=== PATIENT | female | born 1970 | race Caucasian/White ===

== ENCOUNTER 2021-12-22 00:13 | Day surgery (SDC) | payer MEDICAID, SELFPAY ==
[2021-12-06 14:12] VITALS: BMI 23.0
--- NOTE | 2021-12-20 20:25 | PM.HPGS ---
History of Present Illness History of Present Illness Consent: Risks, benefits, and alternatives have been discussed and questions answered. Patient agrees to proceed with procedure. Chief complaint: neoplasm screening Narrative: Nidia Oliver is a 51 year old female refeerred for colon cancer screening Review of Systems Review of Systems: All systems reviewed & are unremarkable except as noted in HPI and below PMFSH Social History Social History Smoking packs per day: 1 Smoking cigarettes per day: 20.0 Years smoked: 30 Smoking pack-years: 30.00 Smoking status: Current every day smoker Tobacco type: cigarettes Alcohol intake: current Drinks per week: 3 Living arrangements: alone Spiritual care concerns: No Meds Home Medications and Allergies Home Medications Medication Instructions Recorded Confirmed Type No Home Medications 12/06/21 12/06/21 History Allergies Allergy/AdvReac Type Severity Reaction Status Date / Time Penicillins Allergy Rash Verified 12/22/21 07:13 Exam Resp: Auscultation: clear to auscultation bilaterally Cardio: Rate: regular rate Rhythm: regular rhythm GI: GI Palp: Yes Soft to palpation and No Tenderness to palpation present (GI) Assessment and Plan Assessment and plan (1) Colon cancer screening: Code(s): Z12.11 - Encounter for screening for malignant neoplasm of colon Status: Acute Assessment and Plan: Colonoscopy with possible biopsy or polypectomy or cautery or injection of substances.
[2021-12-22 07:15] VITALS: BP 159/86; PULSE 121; RESP 20; TEMP 36.4; O2SAT 98; BMI 19.1
[2021-12-22] MEDS: LACTATED RINGERS 1,000 ML 150 ML IV CONT (07:22)
--- NOTE | 2021-12-22 07:23 | SUR.PREOP ---
pt appears anxious, vitals as charted. pt denies symptoms, NAD. MD Francois notified of pt HR. no new orders. pt denies complaints
[2021-12-22 08:13] VITALS: PULSE 98
--- NOTE | 2021-12-22 08:28 | WPDANESEPPF ---
Anes - Initial Pre Proc Eval Procedure: Operation Date: 12/22/21 08:30 Proposed Procedures p Screening Colonoscopy - Naveen Mclaughlin MD Date/Time: 12/22/21 08:28 Surgeon: Naveen Mclaughlin MD Pre Op Diagnosis: neoplasm screening Patient Data Age: 51 Gender: F Height: 1.6 m Weight: 49 kg Last Vital Signs Temp 97.6 F 12/22/21 07:15 Pulse 98 12/22/21 08:13 Resp 20 12/22/21 07:15 BP 159/86 H 12/22/21 07:15 Pulse Ox 98 12/22/21 07:15 Allergies Allergy/AdvReac Type Severity Reaction Status Date / Time Penicillins Allergy Rash Verified 12/22/21 07:13 Home Medications Medication Instructions Recorded Confirmed Type No Home Medications 12/06/21 12/06/21 History Patient hx anesthesia problems: none Family hx anesthesia problems: none Results Review: All pre-operative results and documents have been reviewed as part of the pre-operative evaluation. [facility] Social History Social History Smoking packs per day: 1 Smoking cigarettes per day: 20.0 Years smoked: 30 Smoking pack-years: 30.00 Smoking status: Current every day smoker Tobacco type: cigarettes Alcohol intake: current Drinks per week: 3 Living arrangements: alone Spiritual care concerns: No Anes - Eval Final PreProcedure Day of Procedure 12/22/21 08:28 Patient weight: normal Heart: regular rate and rhythm Lungs: clear to auscultation Airway: Mallampati scale class II Neurological: alert and oriented Last oral intake: >/= 8 hours ASA classification: II Emergent: no Anesthetic plan: proceed Anesthesia type and monitoring: general GIVS and standard monitoring Results Review: All pre-operative results and documents have been reviewed as part of the pre-operative evaluation. Informed Consent: The patient's anesthetic plan and its attendant risks and benefits were discussed with the patient/family/POA. Questions were solicited and answers provided to the satisfaction of the patient/family/POA.
[2021-12-22 09:00] VITALS: BP 87/57; PULSE 90; RESP 19; O2SAT 90
[2021-12-22 09:10] VITALS: BP 94/62; PULSE 97; RESP 19; O2SAT 90
[2021-12-22 09:20] VITALS: BP 122/83; PULSE 95; RESP 25; O2SAT 100
== END 2021-12-22 09:36 | disposition home or self-care (01) ==
PROVIDERS: PCP Internal Medicine; Visit Provider Internal Medicine Gastroenterology
PROC: 0DJD8ZZ Inspection of Lower Intestinal Tract, Via Natural or Artificial Opening Endoscopic (ICD-10-PCS; CPT 45378; principal; 2021-12-22 08:30)
DX: Z12.11 Encounter for screening for malignant neoplasm of colon (principal); D12.2 Benign neoplasm of ascending colon; D12.4 Benign neoplasm of descending colon; D12.5 Benign neoplasm of sigmoid colon; R19.4 Change in bowel habit; F17.210 Nicotine dependence, cigarettes, uncomplicated
CPT/HCPCS: 45385; 45381; 45380; 88305; J2001; J2704; J7120

== ENCOUNTER 2022-10-06 09:21 | Outpatient (CLI) | payer MEDICAID, SELFPAY ==
[2022-10-06 10:07] LABS: Hematocrit 46.2 % (37.0-47.0); Hemoglobin 15.5 g/dL (12.0-15.0); Mean Corpuscular HGB Conc 33.5 g/dl (32-36); Mean Corpuscular Hemoglobin 29.2 pg (26-34); Mean Platelet Volume 10.1 fl (7.4-10.4); Platelet Count Result 280 k/mm3 (150-375); Red Blood Count 5.31 M/mm3 (4.2-5.4); Red Cell Distribution Width 12.9 % (11.5-14.5); White Blood Count 8.3 K/mm3 (4.5-10.0)
[2022-10-06 10:19] LABS: Alanine Aminotransferase 43 U/L (6-35); Albumin Level 4.2 g/dL (3.5-5.1); Alkaline Phosphatase 100 U/L (38-126); Anion Gap 9 mmol/L (8-16); Aspartate Amino Transferase 49 U/L (14-36); Bilirubin,Total 0.8 mg/dL (0.2-1.3); Blood Urea Nitrogen 10 mg/dL (7-17); CRP 6.1 mg/dL (<1.0); Calcium 9.4 mg/dL (8.4-10.2); Carbon Dioxide 29 mmol/L (22-30); Chloride 92 mmol/L (98-107); Estimated Glomerular Filt Rate > 60; Glucose 99 mg/dL (65-110); Potassium 3.6 mmol/L (3.4-5.0); Sodium 130 mmol/L (137-145)
[2022-10-06 10:49] LABS: Erythrocyte Sedimentation Rate 9 mm/hr (0-20)
== END 2022-10-06 09:22 | disposition home or self-care (01) ==
LOC: ANHLAB 09:23
PROVIDERS: PCP Internal Medicine; Visit Provider Nurse Practitioner
DX: R19.7 Diarrhea, unspecified (principal); K50.90 Crohn's disease, unspecified, without complications; R10.31 Right lower quadrant pain; R10.32 Left lower quadrant pain; R63.4 Abnormal weight loss; Z86.010 Personal history of colon polyps
CPT/HCPCS: 36415; 80053; 84443; 85027; 85652; 86140

== ENCOUNTER 2022-10-07 12:39 | Outpatient (CLI) | payer MEDICAID, SELFPAY ==
[2022-10-14 21:12] LABS: Calprotectin, Stool 38 mcg/g
== END 2022-10-07 12:40 | disposition home or self-care (01) ==
LOC: ANHLAB 12:40
PROVIDERS: PCP Internal Medicine; Visit Provider Nurse Practitioner
DX: R19.7 Diarrhea, unspecified (principal); K50.90 Crohn's disease, unspecified, without complications; R63.4 Abnormal weight loss; R10.31 Right lower quadrant pain; R10.32 Left lower quadrant pain; Z86.010 Personal history of colon polyps
CPT/HCPCS: 83993; 87045; 87269; 87427

== ENCOUNTER 2024-06-02 12:04 | Observation (INO) | payer MEDICAID, SELFPAY ==
[2024-06-02] VITALS (17 sets, daily range): BP systolic 90–108; BP diastolic 61–83; PULSE 98–135; RESP 16–26; TEMP 36.4–36.8; O2SAT 95–98
--- NOTE | ~2024-06-02 | XR_ITS ---
EXAMINATION: [id number] DATE: 06/03/2024 17:50 INDICATION: Status post left thoracentesis TECHNIQUE: PA and lateral views of the chest were obtained. COMPARISON: Chest CT dated 06/02/2024 FINDINGS: Decrease in size of a now small left pleural effusion. There are persistent airspace opacities in the left lower lung zone. Right lung remains clear with no pleural effusion. No pulmonary edema or pneum othorax. There is hyperexpansion of the right lung with increased lucency and architectural distortio n in the bilateral upper lung zones consistent with emphysema. Heart size is normal. IMPRESSION: 1. Decreased small right pleural effusion with persistent opacities in the right lower lung zone whic h based upon prior CT likely represent combination of malignancy, pneumonia and atelectasis. 2. Emphysema. Reviewed, dictated and finalized at location A. IMPRESSION: 1. Decreased small right pleural effusion with persistent opacities in the righ t lower lung zone which based upon prior CT likely represent combination of mal ignancy, pneumonia and atelectasis. 2. Emphysema.
--- NOTE | ~2024-06-02 | US_ITS ---
EXAMINATION: US thoracentesis DATE: 06/03/2024 18:13 INDICATION: pleural effusion TECHNIQUE: The procedure and its risks and benefits were discussed with the patient. Potential risks discussed included bleeding, infection, and pneumothorax. The patient understood the risks and agreed to proceed. The skin was prepped and draped in sterile fashion. 1% lidocaine was used for local anes thesia. Under ultrasound guidance, a 5 Fr catheter with trochar was advanced into the left pleural ef fusion. Fluid was aspirated. The catheter was removed, and a dressing was applied. There were no imme diate complications. FINDINGS: Ultrasound images demonstrate a moderate-sized left pleural effusion and the catheter within the flui d. IMPRESSION: 1. Successful ultrasound-guided thoracentesis yielding 1000 mL of dark aston-colored fluid. Reviewed, dictated and finalized at location A. IMPRESSION: 1. Successful ultrasound-guided thoracentesis yielding 1000 mL of dark aston-c olored fluid.
--- NOTE | ~2024-06-02 | CT_ITS ---
EXAMINATION: CTA chest PE protocol DATE: 06/02/2024 16:40 INDICATION: Cough. TECHNIQUE: Computed tomography angiography (CTA) of the chest was performed with 100 mL Omnipaque-350 intravenous contrast timed to evaluate the pulmonary arteries. Coronal maximum intensity projection 3D-reconstructions were created by the technologist. Automated exposure control and iterative reconst ruction technique were employed. The dose-length product was 139.86 mGy-cm. COMPARISON: PET/CT 06/04/2013 FINDINGS: There is severe emphysema. There is a moderate-sized loculated effusion. There is a cavitar y mass in left perihilar region with invasion of left main pulmonary artery. There are airspace opaci ties in left lower lobe and lingula. A calcified right lung nodule is consistent with old granulomato us disease. The heart size is normal. There are coronary artery calcifications. No pericardial effusi on. There is no pulmonary embolus. There is mild thoracic spondylosis. IMPRESSION: 1. Cavitary mass in left perihilar region with invasion of left main pulmonary artery, consistent wit h primary bronchogenic carcinoma. 2. Airspace opacities in left lower lobe and lingula, consistent with pneumonia and atelectasis versu s treatment change. 3. Moderate-sized left pleural effusion. 4. Severe emphysema. Reviewed, dictated and finalized at location E. IMPRESSION: 1. Cavitary mass in left perihilar region with invasion of left main pulmonary artery, consistent with primary bronchogenic carcinoma. 2. Airspace opacities in left lower lobe and lingula, consistent with pneumonia and atelectasis versus treatment change. 3. Moderate-sized left pleural effusion. 4. Severe emphysema.
--- NOTE | 2024-06-02 14:58 | ED.URI ---
HPI - URI/Sore Throat General Chief Complaint: Upper Respiratory Infection Stated Complaint: cough x 3 days Time Seen by Provider: 06/02/24 14:40 Source: patient Mode of arrival: ambulatory Limitations: no limitations History of Present Illness HPI Narrative: Patient presents with cough 3 days duration. She has a history of lung cancer as well COPD and is concerned about pneumonia as she has had a history of recurrent pneumonia but denies any that were drug-resistant. Patient states she has not been under treatment for the past 3 months for her cancer and that she is in a surveillance period. At baseline she smokes 1 pack per day; no prior attempts to stop although she does identify reasons to stop as well as why she continues. She does state that recently she has not had any desire to smoke over the past few days. No sore throat, myagias but she has had rhinorrhea. Lives with her boyfriend who is not sick. Has been coughing up yelow/cear sputum, no hemoptysis. She denies any lower extremity edema but she does have chest pain particiularly on the left side particularly when she coughs. 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 Related Data Home Medications Medication Instructions Recorded Confirmed albuterol sulfate 90 mcg/actuation 2 puff inhalation Q4H PRN 06/02/24 06/02/24 aerosol inhaler Shortness Of Breath Or Wheezing budesonide-formoterol HFA 160 2 puff inhalation Q12H 06/02/24 06/02/24 mcg-4.5 mcg/actuation aerosol inhaler dexamethasone 4 mg tablet 4 mg PO DAILY 06/02/24 06/02/24 ergocalciferol (vitamin D2) 1,250 50,000 unit PO WEEKLY 06/02/24 06/02/24 mcg (50,000 unit) capsule sodium chloride 1,000 mg soluble 1,000 mg PO BID 06/02/24 06/02/24 tablet Allergies Allergy/AdvReac Type Severity Reaction Status Date / Time Penicillins Allergy Rash Verified 06/02/24 14:44 [facility] Past Medical History Medical History Bilateral lower abdominal cramping Crohn's ileitis Emphysema of lung Hx of adenomatous colonic polyps Hx of cancer of uterus Lung cancer Family History Family History Father Heart disease Social History Social History (Updated 06/04/24 @ 07:08 by Emi Ferreira MD) Smoking packs per day: 1 Smoking cigarettes per day: 20.0 Years smoked: 40 Smoking pack-years: 40.00 Smoking status: Heavy tobacco smoker Tobacco type: cigarettes Second hand tobacco smoke exposure: Yes Alcohol intake: never Drinks per week: 3 Substance use: never Substance use type: does not use Do You Feel Safe in your Home?: Yes Lack of Transportation: No Lack of Food: Never True Current Housing: I Have Housing Concerned About Future Housing: No Difficulty Paying Gas/Electric Bills: No Difficulty Paying for Meds: No Currently Unemployed: No Education: High School Diploma/GED Difficulty w/ Childcare or Family Care: No Living arrangements: other Additional living arrangements comments: Lives with boyfriend Spiritual care concerns: No Exam Narrative: GENERAL: Well-appearing, well-nourished, and in no acute distress. HEAD: Normocephalic, atraumatic. EYES: Non injected, non icteric ENT: Nares clear, no rhinorrhea or epistaxis. NECK: Supple. CHEST: Speaking in full sentences. No respiratory distress. Poor breath sounds on the left. No wheezes. HEART: Regular rate and rhythm. . ABDOMEN: Soft, nondistended. EXTREMITIES: Normal range of motion. No edema. SKIN: Warm, dry, no rash. NEURO: No focal deficits. Alert and oriented x3. PSYCH: Normal mood and affect. Course Vital Signs Vital signs: Vital Signs Temperature 97.6 F 06/02/24 12:05 Pulse Rate 135 H 06/02/24 12:05 Respiratory Rate 16 06/02/24 12:05 Blood Pressure 98/61 L 06/02/24 12:05 Pulse Oximetry 96 06/02/24 12:05 Tem
[2024-06-02] MEDS: SODIUM CHLORIDE 0.9% IV 500 ML 999 ML IV CONT ×2 (15:44→16:58)
[2024-06-02 15:50] LABS: Hematocrit 35.9 % (37.0-47.0); Mean Corpuscular HGB Conc 33.4 g/dl (32-36); Mean Corpuscular Volume 80.7 fl (80-100); Mean Platelet Volume 8.9 fl (7.4-10.4); Platelet Count Result 268 k/mm3 (150-375); Red Blood Count 4.45 M/mm3 (4.2-5.4); Red Cell Distribution Width 18.2 % (11.5-14.5)
[2024-06-02 16:03] LABS: Lactic Acid Reflex 2.2 mmol/L (0.7-2.0)
[2024-06-02 16:04] LABS: Alanine Aminotransferase 79 U/L (6-35); Albumin Level 3.3 g/dL (3.5-5.1); Alkaline Phosphatase 139 U/L (38-126); Anion Gap 11 mmol/L (4-12); Aspartate Amino Transferase 38 U/L (14-36); Blood Urea Nitrogen 15 mg/dL (7-17); Calcium 8.8 mg/dL (8.4-10.2); Carbon Dioxide 26 mmol/L (22-30); Chloride 86 mmol/L (98-107); Estimated CRCL calculation 51 ml/min; Estimated Glomerular Filt Rate > 60; Glucose 201 mg/dL (65-110); Sodium 123 mmol/L (137-145)
[2024-06-02 16:12] LABS: Band Neutrophils Percent 3 % (0-6); Lymphocytes Absolute Manual 0.14 K/mm3 (1.1-4.5); Monocytes Absolute Manual 0.28 K/mm3 (0.1-0.90); Monocytes Percent Manual 2 % (3-9); Neutrophils Absolute Manual 13.58 K/mm3 (1.7-7.2); Neutrophils Percent Manual 94 % (46-73); Platelet Estimate Adequate (Adequate); Schistocytes None Seen; Total Cells Counted 100
[2024-06-02 16:13] LABS: Anisocytosis 2+
[2024-06-02 16:16] LABS: Influenza A QL RT-PCR Negative (Negative); Influenza B QL RT-PCR Negative (Negative); RSV RNA, RT-PCR Negative (Negative); SARS-CoV-2 RNA PCR Negative (Negative)
[2024-06-02 16:17] LABS: D Dimer 1.32 ug/mL (<0.48)
[2024-06-02] MEDS: ACETAMINOPHEN 325 MG TABLET 650 MG PO ×2 (18:43→22:12)
[2024-06-02 18:48] LABS: Reflex Lactic Acid Yes or No Add Lactic
--- NOTE | 2024-06-02 18:51 | PM.IMHP ---
H&P: HPI History of Present Illness Date/Time: 06/02/24 18:51 Chief Complaint: Cough, pneumonia Narrative: This is a 54-year-old female patient with past history of COPD and lung cancer being admitted to the hospital for pneumonia and hyponatremia. Patient reports she has undergone treatment for lung cancer but treatments are on hold at this. Patient continues to lose weight and has started on oral steroids to try to increase intake. Patient reports that her sodium level is also low when she is on twice daily sodium chloride tablets. Patient reports that for the last 3 days she has been coughing with resultant left lateral rib pain has been significant. Patient is aware of a pleural effusion in that area causing compression on her lung. Patient reports that she continues to smoke about 1 pack per day. In the emergency department workup was significant for an elevated elevated white blood cell count of 14, elevated lactic acid of 2.2, elevated bilirubin 2.0, negative influenza RSV and COVID. CTA obtained showing severe emphysema, moderate size left pleural effusion, airspace opacities in the left lower lobe and lingula consistent with pneumonia and atelectasis versus treatment change and a cavitary mass in the left parahilar region with invasion of the left main pulmonary artery consistent with primary bronchogenic carcinoma. Patient denies any headache confusion restlessness tremors seizure activity abdominal pain nausea vomiting or fever. Patient did receive 2 L IV fluids in the emergency department and repeat lactic acid continued to rise to 3.5. Additional 1 L LR ordered and repeat labs pending. Review of Systems Review of Systems: All systems reviewed & are unremarkable except as noted in HPI and below PMFSH Past Medical History Medical History Bilateral lower abdominal cramping Crohn's ileitis Emphysema of lung Hx of adenomatous colonic polyps Hx of cancer of uterus Lung cancer Family History Family History Father Heart disease Social History Social History Smoking packs per day: 1 Smoking cigarettes per day: 20.0 Years smoked: 40 Smoking pack-years: 40.00 Smoking status: Heavy tobacco smoker Tobacco type: cigarettes Second hand tobacco smoke exposure: Yes Alcohol intake: never Drinks per week: 3 Substance use: never Substance use type: does not use Do You Feel Safe in your Home?: Yes Lack of Transportation: No Lack of Food: Never True Current Housing: I Have Housing Concerned About Future Housing: No Difficulty Paying Gas/Electric Bills: No Difficulty Paying for Meds: No Currently Unemployed: No Education: High School Diploma/GED Difficulty w/ Childcare or Family Care: No Living arrangements: alone Spiritual care concerns: No Meds Home Medications and Allergies Home Medications Medication Instructions Recorded Confirmed Type albuterol sulfate 90 mcg/actuation 2 puff inhalation Q4H PRN 06/02/24 06/02/24 History aerosol inhaler Shortness Of Breath Or Wheezing budesonide-formoterol HFA 160 2 puff inhalation Q12H 06/02/24 06/02/24 History mcg-4.5 mcg/actuation aerosol inhaler dexamethasone 4 mg tablet 4 mg PO DAILY 06/02/24 06/02/24 History ergocalciferol (vitamin D2) 1,250 50,000 unit PO WEEKLY 06/02/24 06/02/24 History mcg (50,000 unit) capsule sodium chloride 1,000 mg soluble 1,000 mg PO BID 06/02/24 06/02/24 History tablet Allergies Allergy/AdvReac Type Severity Reaction Status Date / Time Penicillins Allergy Rash Verified 06/02/24 14:44 Vital Signs Vital Signs - 24 hr 06/02/24 12:05 06/02/24 14:44 06/02/24 14:44 Temperature 36.4 C Pulse Rate 135 H 124 H Respiratory Rate 16 24 H Blood Pressure 98/61 L 108/78 Pulse Oximetry 96 97 97 Oxygen Manjinderi
--- NOTE | 2024-06-02 19:24 | ADMGEN ---
This patient, Nidia Oliver, was admitted to 3 [facility] Surg Room 310-01. Patient/family oriented to hospital policies and general routines including ID bracelet, bed and alarms, visiting hours, pain management, procedures, bathroom and other care routines, personal items, smoking policy, room service/diet, and visiting hours. Information on how to activate the Rapid Response Team has been discussed. Patient/Family are encouraged to report perceived risks to care and to ask questions if they do not understand what they are told or what they should do.
[2024-06-02 19:40] LABS: Lactic Acid 3.5 mmol/L (0.7-2.0)
[2024-06-02] MEDS: AZITHROMYCIN 500 MG/NS 250 ML 500 MG/250 ML BAG 250 MG IVPB (20:41)
[2024-06-02 20:57] LABS: Alveolar/Arterial O2 Gradient 32.2 mmHg; Base Excess ABG -0.1 mEq/l (+/-2.0); Device ROOM AIR; Fractional Inspired Oxygen 21 %; Oxygen Content ABG 15.7 %vol (16.0-22.0); Oxygen Saturation ABG 96.4 % (95.0-100.0); Oxyhemoglobin 95.3 % THb (90.0-100.0); PCO2 ABG 32.5 mmHg (35.0-45.0); PO2 ABG 78.6 mmHg (80.0-100.0); PO2 FiO2 Ratio Arterial Blood 3.74 %; Site Drawn RIGHT BRACHIAL; Total Hemoglobin 11.7 g/dL (12.0-18.0); pH ABG 7.468 (7.350-7.450)
[2024-06-02] MEDS: LACTATED RINGERS 1,000 ML 999 ML IV CONT (22:01)
[2024-06-02] MEDS: SODIUM CHLORIDE 1 GM TABLET PO (22:02)
[2024-06-02 22:23] LABS: Procalcitonin 0.5 ng/mL
[2024-06-02 23:55] LABS: Lactic Acid Reflex 1.3 mmol/L (0.7-2.0)
[2024-06-02 23:56] LABS: Alanine Aminotransferase 65 U/L (6-35); Albumin Level 2.7 g/dL (3.5-5.1); Alkaline Phosphatase 112 U/L (38-126); Aspartate Amino Transferase 35 U/L (14-36); Bilirubin,Total 0.8 mg/dL (0.2-1.3)
[2024-06-02 23:57] LABS: Anion Gap 8 mmol/L (4-12); Blood Urea Nitrogen 18 mg/dL (7-17); Calcium 8.2 mg/dL (8.4-10.2); Carbon Dioxide 25 mmol/L (22-30); Chloride 95 mmol/L (98-107); Estimated CRCL calculation 51 ml/min; Estimated Glomerular Filt Rate > 60; Glucose 124 mg/dL (65-110); Potassium 3.7 mmol/L (3.4-5.0); Sodium 128 mmol/L (137-145)
[2024-06-03] VITALS (11 sets, daily range): BP systolic 95–121; BP diastolic 59–68; PULSE 73–116; RESP 16–20; TEMP 35.7–36.7; O2SAT 94–99; BMI 14.0
[2024-06-03] MEDS: SODIUM CHLORIDE 0.9% IV 1,000 ML 60 ML IV CONT ×2 (01:47→16:39)
[2024-06-03 02:08] LABS: Procalcitonin 0.5 ng/mL
[2024-06-03 06:28] LABS: Basophils Percent Auto 0.3 % (0.2-1.2); Hematocrit 31.4 % (37.0-47.0); Hemoglobin 10.1 g/dL (12.0-15.0); Immature Granulocyte Absolute 0.11 K/mm3 (0.00-0.031); Immature Granulocyte Percent A 0.9 % (0-0.5); Lymphocytes Absolute Auto 0.54 K/mm3 (0.9-3.2); Lymphocytes Percent Auto 4.5 % (18.3-44.2); Mean Corpuscular HGB Conc 32.2 g/dl (32-36); Mean Corpuscular Hemoglobin 26.6 pg (26-34); Mean Corpuscular Volume 82.6 fl (80-100); Mean Platelet Volume 9.4 fl (7.4-10.4); Monocytes Absolute Auto 0.6 K/mm3 (0.1-0.6); Monocytes Percent Auto 5.3 % (2.6-8.5); Neutrophils Absolute Auto 10.6 K/mm3 (1.3-6.7); Platelet Count Result 297 k/mm3 (150-375); Red Cell Distribution Width 18.2 % (11.5-14.5)
[2024-06-03 06:45] LABS: Alanine Aminotransferase 61 U/L (6-35); Albumin Level 2.8 g/dL (3.5-5.1); Alkaline Phosphatase 107 U/L (38-126); Aspartate Amino Transferase 34 U/L (14-36); Bilirubin,Total 0.7 mg/dL (0.2-1.3)
[2024-06-03 06:46] LABS: Albumin Level 2.8 g/dL (3.5-5.1); Anion Gap 7 mmol/L (4-12); Blood Urea Nitrogen 14 mg/dL (7-17); Calcium 8.3 mg/dL (8.4-10.2); Carbon Dioxide 27 mmol/L (22-30); Chloride 96 mmol/L (98-107); Estimated CRCL calculation 60 ml/min; Estimated Glomerular Filt Rate > 60; Glucose 109 mg/dL (65-110); Magnesium 1.8 mg/dL (1.6-2.3); Phosphorus 3.3 mg/dL (2.5-4.5); Potassium 3.8 mmol/L (3.4-5.0); Sodium 130 mmol/L (137-145)
[2024-06-03] MEDS: FLUTICASONE/SALMETEROL 115-21 MCG INHALER 1 PUFF 2 PUFF INHALATION ×2 (07:55→21:05)
--- NOTE | 2024-06-03 08:00 | PM.IMPN ---
Progress Note: A&P Assessment and Plan (1) Community acquired pneumonia: Code(s): J18.9 - Pneumonia, unspecified organism Status: Acute Assessment and Plan: Left lower lobe airspace opacities consistent with pneumonia versus atelectasis versus treatment changes also likely compressed due to left pleural effusion. Patient received 1 g IV Rocephin and 500 mg azithromycin IV from the emergency department. Due to severe underweight patient, will decrease azithromycin dose to 250 mg oral for 4 more days, Continue Rocephin 1g Q24HR. Supplemental oxygen as needed, incentive spirometer encouraged Legionella and pneumococcal antigen ordered Influenza RSV COVID negative Sputum culture ordered (2) Acidosis, lactic: Code(s): E87.20 - Acidosis, unspecified Status: Acute Assessment and Plan: Initial lactic acid 2.2, continue to rise after IV fluid resuscitation Additional IV fluids given, lactic has cleared to 1.0 Procalcitonin 0.5 (3) Hyponatremia: Code(s): E87.1 - Hypo-osmolality and hyponatremia Status: Acute Assessment and Plan: Patient reports chronic history of hyponatremia with home medications 1 g sodium chloride twice daily Last value in our computer system from September 2022 was 130 On ER assessment sodium 123 prior to IV fluid resuscitation Repeat labs pending and daily labs ordered (4) Bronchogenic carcinoma of lung: Code(s): C34.90 - Malignant neoplasm of unspecified part of unspecified bronchus or lung Status: Acute Assessment and Plan: Patient aware of lung cancer, previously aggressively treated, potentially not aware of invasive cavitary lesion with invasion to the pulmonary arteries and bronchus. (5) Pleural effusion on left: Code(s): J90 - Pleural effusion, not elsewhere classified Status: Acute Assessment and Plan: Chronic pleural effusion as patient states that her left lung collapsed for a long time Moderate in size. Will plan for thoracentesis. (6) Nicotine dependence: Qualifiers: Nicotine product type: cigarettes Code(s): F17.200 - Nicotine dependence, unspecified, uncomplicated Status: Acute Assessment and Plan: Still Smokes 1 pack/day Ordered nicotine replacement patch Smoking cessation counseling (7) Severe protein-calorie malnutrition: Code(s): E43 - Unspecified severe protein-calorie malnutrition Status: Acute Assessment and Plan: BMI 14.1 body weight 36 kg, patient very cachectic appearing, on dexamethasone daily for appetite stimulant Regular diet, dietary supplements every 4 hours, consider addition of Megace Ensure TID Plan Admission to [facility] Q 4 hour vital signs Monitor sodium levels to prevent rapid over-correction After fluid bolus normal saline at 60 mL/hr Diet: Regular diet with acute for our dietary supplements DVT prophylaxis: SCDs, hold pharmacologic due to severe underweight and limited subcutaneous tissue as well as potential for thoracentesis GI prophylaxis: Not indicated Code status: DNR Subjective Date/time seen: 06/03/24 08:00 Interval history: This is a 54-year-old female patient with past history of COPD and lung cancer being admitted to the hospital for pneumonia and chronic hyponatremia. Patient reports she has undergone treatment for lung cancer but treatments are on hold at this. Patient continues to lose weight and has started on oral steroids to try to increase intake. 06/03: She reports productive cough with yellow sputum and inspiratory chest pain to the left lower lobe. She feels weak and fatigued but otherwise no new complaints. Review of Systems Review of Systems: All systems reviewed & are unremarkable except as noted in HPI and below Exam Narrative: General: thin, frail, appears stated age. HEENT: normocephalic, atraumatic. Mucous membranes moist. EOMI, PERRLA, bilateral sclera anicteric, no conjuncti
[2024-06-03] MEDS: ERGOCALCIFEROL 50,000 UNITS CAPSULE 50000 UNITS PO (08:33)
[2024-06-03] MEDS: SODIUM CHLORIDE 1 GM TABLET PO ×2 (08:33→16:39)
[2024-06-03] MEDS: dexAMETHasone 4 MG TABLET PO (08:33)
[2024-06-03] MEDS: ACETAMINOPHEN 325 MG TABLET 650 MG PO ×2 (10:50→16:38)
[2024-06-03 15:43] LABS: INR 1.1; Partial Thromboplastin Time 32.3 Seconds (22.3-36.8); Prothrombin Time 14.9 Seconds (11.1-14.7)
[2024-06-03] MEDS: LORazepam (*CRX) 0.5 MG TABLET PO (16:39)
[2024-06-03] MEDS: AZITHROMYCIN 250 MG TABLET PO (16:39)
[2024-06-03 17:54] LABS: pH Pleural Fluid 7.245 (7.210-7.500)
[2024-06-03 20:02] LABS: Pleural fluid source Pleural fluid
[2024-06-03 20:03] LABS: Appearance Pleural Fluid Hazy (Clear); Color Pleural Fluid Yellow (Colorless)
[2024-06-03 20:04] LABS: Lymphocytes Pleural Fluid 6 %; Macrophages Pleural Fluid 1 %; Monocytes Pleural Fluid 9 %; Neutrophils Pleural Fluid 84 % (0-25); Nucleated Cell Pleural Fluid 6215 /uL (0-1000); RBC Pleural Fluid 10000 /uL (0-10000)
[2024-06-04] VITALS (8 sets, daily range): BP systolic 112–117; BP diastolic 66–75; PULSE 79–102; RESP 16–20; TEMP 36.3–36.6; O2SAT 96–100
[2024-06-04 07:05] LABS: Basophils Percent Auto 0.1 % (0.2-1.2); Hematocrit 30.1 % (37.0-47.0); Hemoglobin 9.3 g/dL (12.0-15.0); Immature Granulocyte Absolute 0.09 K/mm3 (0.00-0.031); Immature Granulocyte Percent A 1.1 % (0-0.5); Lymphocytes Absolute Auto 0.54 K/mm3 (0.9-3.2); Lymphocytes Percent Auto 6.6 % (18.3-44.2); Mean Corpuscular HGB Conc 30.9 g/dl (32-36); Mean Corpuscular Hemoglobin 26.1 pg (26-34); Mean Corpuscular Volume 84.6 fl (80-100); Mean Platelet Volume 9.5 fl (7.4-10.4); Monocytes Absolute Auto 0.4 K/mm3 (0.1-0.6); Neutrophils Absolute Auto 7.2 K/mm3 (1.3-6.7); Neutrophils Percent Auto 87.2 % (45.5-73.1); Platelet Count Result 267 k/mm3 (150-375); Red Blood Count 3.56 M/mm3 (4.2-5.4); Red Cell Distribution Width 18.3 % (11.5-14.5); White Blood Count 8.2 K/mm3 (4.5-10.0)
[2024-06-04 07:16] LABS: Lactic Acid Reflex 1.4 mmol/L (0.7-2.0)
[2024-06-04 07:17] LABS: Alanine Aminotransferase 64 U/L (6-35); Albumin Level 2.6 g/dL (3.5-5.1); Alkaline Phosphatase 87 U/L (38-126); Aspartate Amino Transferase 47 U/L (14-36); Bilirubin,Total 0.3 mg/dL (0.2-1.3)
[2024-06-04 07:19] LABS: Albumin Level 2.6 g/dL (3.5-5.1); Anion Gap 7 mmol/L (4-12); Blood Urea Nitrogen 10 mg/dL (7-17); Calcium 8.3 mg/dL (8.4-10.2); Carbon Dioxide 26 mmol/L (22-30); Chloride 97 mmol/L (98-107); Estimated CRCL calculation 60 ml/min; Estimated Glomerular Filt Rate > 60; Glucose 90 mg/dL (65-110); Magnesium 1.7 mg/dL (1.6-2.3); Phosphorus 3.4 mg/dL (2.5-4.5); Potassium 3.6 mmol/L (3.4-5.0); Sodium 130 mmol/L (137-145)
[2024-06-04 07:33] LABS: Procalcitonin 0.4 ng/mL
[2024-06-04] MEDS: FLUTICASONE/SALMETEROL 115-21 MCG INHALER 1 PUFF 2 PUFF INHALATION ×2 (07:40→19:40)
[2024-06-04] MEDS: dexAMETHasone 4 MG TABLET PO (07:48)
[2024-06-04] MEDS: SODIUM CHLORIDE 1 GM TABLET PO ×2 (07:49→16:24)
--- NOTE | 2024-06-04 13:17 | PM.IMPN ---
Progress Note: A&P Assessment and Plan (1) Community acquired pneumonia: Code(s): J18.9 - Pneumonia, unspecified organism Status: Acute Assessment and Plan: Left lower lobe airspace opacities consistent with pneumonia versus atelectasis versus treatment changes also likely compressed due to left pleural effusion. Patient received 1 g IV Rocephin and 500 mg azithromycin IV from the emergency department. Due to severe underweight patient, will decrease azithromycin dose to 250 mg oral for 4 more days, Continue Rocephin 1g Q24HR. Supplemental oxygen as needed, incentive spirometer encouraged Legionella and pneumococcal antigen ordered Influenza RSV COVID negative Sputum culture ordered S/P thoracentesis with 1 L fluid removal (2) Acidosis, lactic: Code(s): E87.20 - Acidosis, unspecified Status: Acute Assessment and Plan: Initial lactic acid 2.2, continue to rise after IV fluid resuscitation Additional IV fluids given, lactic has cleared to 1.0 Procalcitonin 0.5 RESOLVED (3) Hyponatremia: Code(s): E87.1 - Hypo-osmolality and hyponatremia Status: Acute Assessment and Plan: Patient reports chronic history of hyponatremia with home medications 1 g sodium chloride twice daily Last value in our computer system from September 2022 was 130 On ER assessment sodium 123 prior to IV fluid resuscitation Repeat labs pending and daily labs ordered RESOLVED (4) Bronchogenic carcinoma of lung: Code(s): C34.90 - Malignant neoplasm of unspecified part of unspecified bronchus or lung Status: Acute Assessment and Plan: Patient aware of lung cancer, previously aggressively treated, potentially not aware of invasive cavitary lesion with invasion to the pulmonary arteries and bronchus. (5) Pleural effusion on left: Code(s): J90 - Pleural effusion, not elsewhere classified Status: Acute Assessment and Plan: Chronic pleural effusion as patient states that her left lung collapsed for a long time s/p 1 L off with thoracentesis Fluid studies pending (6) Nicotine dependence: Qualifiers: Nicotine product type: cigarettes Code(s): F17.200 - Nicotine dependence, unspecified, uncomplicated Status: Acute Assessment and Plan: Still Smokes 1 pack/day Ordered nicotine replacement patch Smoking cessation counseling (7) Severe protein-calorie malnutrition: Code(s): E43 - Unspecified severe protein-calorie malnutrition Status: Acute Assessment and Plan: BMI 14.1 body weight 36 kg, patient very cachectic appearing, on dexamethasone daily for appetite stimulant Regular diet, dietary supplements every 4 hours, consider addition of Megace Ensure TID Plan DVT prophylaxis: scd GI prophylaxis: na Glycemic control: na Code Status: DNR Disposition: 54-year-old female who presented to the emergency room with complaints of shortness of breath and cough. CT of the chest was concerning for and left lower lobe pneumonia with a moderate-sized pleural effusion. Patient underwent thoracentesis on 06/03 with 1 L fluid removed. Fluid studies are pending. She remains inpatient with IV antibiotic therapy while we await culture results from thoracentesis. Medication reconciliation obtained via the following: Nurse completed on admission The file time of this note does not necessarily represent the time the patient was seen. Subjective Date/time seen: 06/04/24 13:17 Interval history: This is a 54-year-old female patient with past history of COPD and lung cancer being admitted to the hospital for pneumonia and chronic hyponatremia. Patient reports she has undergone treatment for lung cancer but treatments are on hold at this. Patient continues to lose weight and has started on oral steroids to try to increase
[2024-06-04] MEDS: AZITHROMYCIN 250 MG TABLET PO (16:24)
[2024-06-05 05:26] VITALS: BP 127/74; PULSE 88; RESP 18; TEMP 37.3; O2SAT 97
[2024-06-05 06:57] LABS: Basophils Percent Auto 0.1 % (0.2-1.2); Eosinophils Percent Auto 0.3 % (0-4.4); Hematocrit 30.2 % (37.0-47.0); Hemoglobin 9.4 g/dL (12.0-15.0); Immature Granulocyte Absolute 0.08 K/mm3 (0.00-0.031); Immature Granulocyte Percent A 1.1 % (0-0.5); Lymphocytes Absolute Auto 0.71 K/mm3 (0.9-3.2); Lymphocytes Percent Auto 9.4 % (18.3-44.2); Mean Corpuscular HGB Conc 31.1 g/dl (32-36); Mean Corpuscular Volume 83.7 fl (80-100); Monocytes Absolute Auto 0.4 K/mm3 (0.1-0.6); Monocytes Percent Auto 5.8 % (2.6-8.5); Neutrophils Absolute Auto 6.3 K/mm3 (1.3-6.7); Neutrophils Percent Auto 83.3 % (45.5-73.1); Platelet Count Result 280 k/mm3 (150-375); Red Blood Count 3.61 M/mm3 (4.2-5.4); Red Cell Distribution Width 18.1 % (11.5-14.5); White Blood Count 7.5 K/mm3 (4.5-10.0)
[2024-06-05 07:08] LABS: Alanine Aminotransferase 122 U/L (6-35); Albumin Level 2.6 g/dL (3.5-5.1); Alkaline Phosphatase 93 U/L (38-126); Anion Gap 5 mmol/L (4-12); Aspartate Amino Transferase 106 U/L (14-36); Bilirubin,Total 0.4 mg/dL (0.2-1.3); Blood Urea Nitrogen 10 mg/dL (7-17); Carbon Dioxide 29 mmol/L (22-30); Chloride 95 mmol/L (98-107); Estimated CRCL calculation 60 ml/min; Estimated Glomerular Filt Rate > 60; Glucose 84 mg/dL (65-110); Magnesium 1.6 mg/dL (1.6-2.3); Phosphorus 3.2 mg/dL (2.5-4.5); Potassium 3.3 mmol/L (3.4-5.0); Sodium 129 mmol/L (137-145)
[2024-06-05 07:09] LABS: Lactic Acid Reflex 1.6 mmol/L (0.7-2.0)
[2024-06-05 07:28] LABS: Procalcitonin 0.2 ng/mL
[2024-06-05 07:40] VITALS: PULSE 101; RESP 18; O2SAT 94
[2024-06-05] MEDS: FLUTICASONE/SALMETEROL 115-21 MCG INHALER 1 PUFF 2 PUFF INHALATION (07:40)
[2024-06-05] MEDS: SODIUM CHLORIDE 1 GM TABLET PO (08:55)
[2024-06-05] MEDS: dexAMETHasone 4 MG TABLET PO (08:55)
[2024-06-05] MEDS: POTASSIUM CHLORIDE 20 MEQ ER TABLET 40 MEQ PO (08:55)
[2024-06-05 10:42] LABS: Hepatitis B Surface Antigen Negative (Negative)
[2024-06-05 10:48] LABS: HAV RESULT Negative (Negative); Hepatitis B Core IgM Result Negative (Negative)
[2024-06-05 11:00] LABS: Hepatitis C Virus Antibody Negative (Negative)
--- NOTE | 2024-06-05 11:44 | PM.DS ---
DS: Admitting Diagnosis Discharge Date 06/05/2024 Admitting Diagnosis Community acquired Pneumonia DS: Discharge Diagnosis Discharge Diagnosis (1) Community acquired pneumonia: Code(s): J18.9 - Pneumonia, unspecified organism Status: Acute Assessment and Plan: Left lower lobe airspace opacities consistent with pneumonia versus atelectasis versus treatment changes also likely compressed due to left pleural effusion. Patient received 1 g IV Rocephin and 500 mg azithromycin IV from the emergency department. Due to severe underweight patient, will decrease azithromycin dose to 250 mg oral for 4 more days, Continue Rocephin 1g Q24HR. Supplemental oxygen as needed, incentive spirometer encouraged Legionella and pneumococcal antigen ordered Influenza RSV COVID negative Sputum culture ordered S/P thoracentesis with 1 L fluid removal (2) Acidosis, lactic: Code(s): E87.20 - Acidosis, unspecified Status: Acute Assessment and Plan: Initial lactic acid 2.2, continue to rise after IV fluid resuscitation Additional IV fluids given, lactic has cleared to 1.0 Procalcitonin 0.5 RESOLVED (3) Hyponatremia: Code(s): E87.1 - Hypo-osmolality and hyponatremia Status: Acute Assessment and Plan: Patient reports chronic history of hyponatremia with home medications 1 g sodium chloride twice daily Last value in our computer system from September 2022 was 130 On ER assessment sodium 123 prior to IV fluid resuscitation Repeat labs pending and daily labs ordered RESOLVED (4) Bronchogenic carcinoma of lung: Code(s): C34.90 - Malignant neoplasm of unspecified part of unspecified bronchus or lung Status: Acute Assessment and Plan: Patient aware of lung cancer, previously aggressively treated, potentially not aware of invasive cavitary lesion with invasion to the pulmonary arteries and bronchus. (5) Pleural effusion on left: Code(s): J90 - Pleural effusion, not elsewhere classified Status: Acute Assessment and Plan: Chronic pleural effusion as patient states that her left lung collapsed for a long time s/p 1 L off with thoracentesis Fluid studies pending (6) Nicotine dependence: Qualifiers: Nicotine product type: cigarettes Code(s): F17.200 - Nicotine dependence, unspecified, uncomplicated Status: Acute Assessment and Plan: Still Smokes 1 pack/day Ordered nicotine replacement patch Smoking cessation counseling (7) Severe protein-calorie malnutrition: Code(s): E43 - Unspecified severe protein-calorie malnutrition Status: Acute Assessment and Plan: BMI 14.1 body weight 36 kg, patient very cachectic appearing, on dexamethasone daily for appetite stimulant Regular diet, dietary supplements every 4 hours, consider addition of Megace Ensure TID DS: Summary Hospital Course Reason for hospitalization: Community acquired Pneumonia Hospital Course: Admission: Medical Record This was a 54-year-old female patient with past history of COPD and lung cancer being admitted to the hospital for pneumonia and hyponatremia. Patient reports she has undergone treatment for lung cancer but treatments are on hold at this. Patient continues to lose weight and has started on oral steroids to try to increase intake. Patient reports that her sodium level is also low when she is on twice daily sodium chloride tablets. Patient reports that for the last 3 days she has been coughing with resultant left lateral rib pain has been significant. Patient is aware of a pleural effusion in that area causing compression on her lung. Patient reports that she continues to smoke about 1 pack per day. In the emergency department workup was significant for an elevated elevated white blood cell count of 14, elevated lactic acid of 2.2, elevated bilirubin 2.0, negative influenza RSV and COVID. CTA obtained showing severe emphyse
[2024-06-06 22:03] LABS: Legionella pneumophila Ag Ur NOT DETECTED
[2024-06-07 17:44] LABS: Pneumococcal Antigen Urine NOT DETECTED
[2024-06-08 06:18] LABS: Amylase, Pleural Fluid 14 U/L; Glucose Pleural Fluid 111 mg/dL; LDH Pleural Fluid 614 U/L; Total Protein Pleural Fluid 3.6 g/dL
== END 2024-06-05 12:10 | disposition home or self-care (01) ==
LOC: ANHED 14:50 → ANH3MEDSUR 21:37
PROVIDERS: Nurse Practitioner; Nurse Practitioner Acute Care; Admitting Provider Internal Medicine; Emergency Provider Student in an Organized Health Care Education/Training Program; PCP Internal Medicine; Visit Provider Nurse Practitioner Family
DX: J18.9 Pneumonia, unspecified organism (principal); J44.0 Chronic obstructive pulmonary disease with (acute) lower respiratory infection; J43.9 Emphysema, unspecified; C34.90 Malignant neoplasm of unspecified part of unspecified bronchus or lung; J90 Pleural effusion, not elsewhere classified; E87.20 Acidosis, unspecified; R74.01 Elevation of levels of liver transaminase levels; E87.1 Hypo-osmolality and hyponatremia; E88.09 Other disorders of plasma-protein metabolism, not elsewhere classified; Z20.822 Contact with and (suspected) exposure to COVID-19; E80.6 Other disorders of bilirubin metabolism; E43 Unspecified severe protein-calorie malnutrition; Z68.1 Body mass index [BMI] 19.9 or less, adult; K50.90 Crohn's disease, unspecified, without complications; Z79.51 Long term (current) use of inhaled steroids; F17.210 Nicotine dependence, cigarettes, uncomplicated
CPT/HCPCS: 32555; 36415; 36600; 71275; 80048; 80053; 80069; 80074; 80076; 82042; 82150; 82805; 82945; 83605; 83615; 83735; 83986; 84145; 84157; 84311; 84478; 85025; 85380; 85610; 85730; 87040; 87070; 87075; 87102; 87205; 87206; 87449; 87637; 87899; 88108; 88305; 89051; 94640; 96361; 96365; 96375; 99285; A9270; G0378; G0379; J0456; J0696; J7030; J7040; J7120; J8540; Q9967